=== PATIENT | male | born 1945 | race Caucasian/White ===

== ENCOUNTER 2018-02-06 07:22 | Day surgery (SDC) | payer MEDICARE, OTHER ==
[~2018-02-06] VITALS: Ht 175.3 cm; Wt 89.0 kg
[~2018-02-06 07:22] MED LIST: ASPI81EC PO; COLC.6 PO; ELIQUIS5 MG PO; FLEC100 PO; GABA100 PO; HYDACE5 PO; HYDCHL25 PO; LOSA25 PO; METTREX2.5 PO; OMEP20ER PO; POTCHL10ER PO; PROB500 PO; Percocet 5-3251 EACH PO; TRAVER2240 PO
== END 2018-02-06 10:14 | disposition home or self-care (01) ==
LOC: ORSCSDS 07:22
PROVIDERS: Orthopaedic Surgery
PROC: 01N50ZZ Release Median Nerve, Open Approach (ICD-10-PCS; principal; 2018-02-06 08:45)
DX: G56.01 Carpal tunnel syndrome, right upper limb (principal); I48.0 Paroxysmal atrial fibrillation; I10 Essential (primary) hypertension; E78.5 Hyperlipidemia, unspecified; G47.33 Obstructive sleep apnea (adult) (pediatric); Z79.01 Long term (current) use of anticoagulants; Z79.899 Other long term (current) drug therapy
CPT/HCPCS: J2250; J7120

== ENCOUNTER → 2019-10-27 | Outpatient (CLI) | payer MEDICARE, OTHER | END | disposition home or self-care (01) | LOC: PLD 12:23 → LAB SHORT 12:23 | DX: D22.5 Melanocytic nevi of trunk (principal) | CPT/HCPCS: 88305 ==

== ENCOUNTER 2020-07-23 16:31 | Emergency (ER) | payer MEDICARE, OTHER ==
[~2020-07-23] VITALS: Ht 175.3 cm; Wt 83.5 kg
[2020-07-23 20:54] LABS: BASOPHILS ABSOLUTE AUTO 0.04 K/mm3 (0.00-0.23); BASOPHILS PERCENT AUTO 1 % (0-2); EOSINOPHILS ABSOLUTE AUTO 0.05 K/mm3 (0.00-0.68); EOSINOPHILS PERCENT AUTO 1 % (0-6); Hematocrit 42.5 % (37.0-53.0); Hemoglobin 13.9 g/dL (13.5-17.5); IMMATURE GRAN ABSOLUTE AUTO 0.01 K/mm3 (0.00-0.10); IMMATURE GRAN PERCENT AUTO 0 % (0-1); LYMPHOCYTES ABSOLUTE AUTO 1.72 K/mm3 (0.84-5.20); LYMPHOCYTES PERCENT AUTO 24 % (21-46); MONOCYTES ABSOLUTE AUTO 0.69 K/mm3 (0.16-1.47); MONOCYTES PERCENT AUTO 10 % (4-13); Mean Corpuscular HGB 33.7 pg (26.0-34.0); Mean Corpuscular HGB Conc 32.7 g/dL (31.5-36.5); Mean Corpuscular Volume 103 fL (80-100); Mean Platelet Volume 10.9 fL (9.1-12.4); NEUTROPHILS PERCENT AUTO 65 % (41-73); Platelet Count 170 K/mm3 (150-400); RDW Coefficient Variation 13.7 % (11.7-14.2); RDW Standard Deviation 52.5 fL (35.1-46.3); Red Blood Cell Count 4.13 M/mm3 (4.30-5.90); White Blood Cell Count 7.21 K/mm3 (4.00-11.30)
[2020-07-23 21:18] LABS: Alanine Aminotransfer (ALT/SGP 31 U/L (12-78); Albumin, Blood 3.9 g/dL (3.4-5.0); Albumin/Globulin Ratio 1.3 (0.8-1.8); Alk Phos 75 U/L (50-136); Anion Gap 4 mmol/L (6-16); Aspartate Aminotrans (AST/SGOT 19 U/L (12-37); Bilirubin, Total 0.4 mg/dL (0.1-1.0); Blood Urea Nitrogen 21 mg/dL (8-24); Bun/Creatinine Ratio 23.8 (12.0-20.0); CO2, Blood 27 mmol/L (21-32); Calcium, Blood 9.6 mg/dL (8.5-10.1); Chloride, Blood 115 mmol/L (98-108); Creatinine, Blood 0.88 mg/dL (0.60-1.20); Glomerular Filtration Rate >60 (60-); Glucose, Blood 87 mg/dL (70-99); Potassium, Blood 4.9 mmol/L (3.5-5.5); Sodium, Blood 146 mmol/L (136-145); Total Protein, Blood 6.9 g/dL (6.4-8.2)
[2020-07-23] MEDS ORDERED: HYDR1TAB94 PO (22:08)
== END 2020-07-23 22:40 | disposition home or self-care (01) ==
LOC: ER 16:31
PROVIDERS: Physician Assistant
DX: S30.1XXA Contusion of abdominal wall, initial encounter (principal); S20.211A Contusion of right front wall of thorax, initial encounter; I48.91 Unspecified atrial fibrillation; I10 Essential (primary) hypertension; K21.9 Gastro-esophageal reflux disease without esophagitis; Z88.5 Allergy status to narcotic agent; Z88.6 Allergy status to analgesic agent; Z88.8 Allergy status to other drugs, medicaments and biological substances; Z79.01 Long term (current) use of anticoagulants; Z79.899 Other long term (current) drug therapy; W01.198A Fall on same level from slipping, tripping and stumbling with subsequent striking against other object, initial encounter
CPT/HCPCS: 36415; 71101; 74177; 80053; 85025; 99284-25; Q9967

== ENCOUNTER → 2021-07-26 | Outpatient (CLI) | payer MEDICARE, OTHER ==
[~2021-07-26] MED LIST changes: +HYDR1TAB94 PO
== END ==
LOC: LAB 11:12 → LAB SHORT 11:12
DX: D48.5 Neoplasm of uncertain behavior of skin (principal); L57.8 Other skin changes due to chronic exposure to nonionizing radiation; L83 Acanthosis nigricans; Z88.5 Allergy status to narcotic agent
CPT/HCPCS: 88305

== ENCOUNTER → 2023-08-27 | Outpatient (CLI) | payer MEDICARE, OTHER | LOC: LAB 14:35 → LAB SHORT 14:35 | DX: L72.9 Follicular cyst of the skin and subcutaneous tissue, unspecified (principal) | CPT/HCPCS: 88305 ==

== ENCOUNTER → 2024-12-07 | Outpatient (CLI) | payer MEDICARE, OTHER | LOC: LAB 14:00 → LAB SHORT 14:00 | DX: L08.0 Pyoderma (principal) | CPT/HCPCS: 87070; 87205 ==